=== PATIENT | male | born 1960 | race Caucasian/White ===

== ENCOUNTER 2018-04-19 17:44 | Emergency (ER) | payer OTHER, SELFPAY ==
[2018-04-19 17:52] VITALS: BP 161/95; PULSE 76; RESP 16; TEMP 36.8; O2SAT 97
--- NOTE | 2018-04-19 18:56 | ED.GENADUL ---
Disposition Clinical Impression: Laceration of right hand Disposition: HOME Condition: Stable Instructions: Laceration (ED) Additional Instructions: Watch for any signs of infection and return immediately if these occur. These include purulent drainage, redness surrounding the wound that is significant, or streaking redness up your arm. Return to the emergency department in 7-10 days for suture removal. Referrals: [facility] Emergency Dept. [Outside] (Return in 7-10 days for suture removal or immediately for signs of infection.) Forms: Work Release Medical Decision Making - Medical Decision Making Patient presenting to the emergency department for complaint of right thumb laceration. Patient has a 2 cm laceration to the base of the right thumb. See wound closure note for wound closure procedure. Wound was explored to base in bloodless field and no signs of vascular, tendon, or deep structure injury was noted. Patient tolerated procedure appropriately with no signs of complication. Patient encouraged to return for any signs of infection otherwise to return for suture removal. After discussion of diagnosis and plan of care with patient patient agreed and stated no further needs, questions, or concerns at this time. History of Present Illness - General Chief complaint: Laceration Stated complaint: UNKNOWN Time Seen by Provider: 04/19/18 18:17 Source: patient, RN notes reviewed Mode of arrival: ambulatory Limitations: no limitations - History of Present Illness Initial comments: Patient reports just prior to arrival he was attempting to mary his home up using a metal bar and when he was pushing on this the metal bar broke causing a laceration in between his thumb and index finger but closer to the base of his thumb. Patient states full movement and strength along with sensation distal to the injury but is concerned more for depth of the laceration. Patient states he is unsure of when his last tetanus was. Onset/Timin -: minutes(s) Location: right, upper extremity Severity scale (1-10): 1 Quality: aching Consistency: constant Improves with: none Worsens with: none Associated Symptoms: denies other symptoms Treatments Prior to Arrival: none - Related Data Unknown [No Known Home Meds] 04/19/18 Allergies Allergy/AdvReac Type Severity Reaction Status Date / Time No Known Allergies Allergy Unverified 04/19/18 17:51 Review of Systems Constitutional: no symptoms reported Respiratory: no symptoms reported Cardiovascular: denies: syncope Skin: as per HPI Comment: All other systems reviewed and negative Past Medical History - Past Medical History Medical history: no medical history Surgical history: no surgical history - Social History Smoking status: never smoker Alcohol use: rarely. denies: recent Drug use: none Living Situation: lives with family General Exam - General Limitations: no limitations General appearance: alert, in no apparent distress - Head Head exam: Present: atraumatic - Respiratory Respiratory exam: Absent: respiratory distress - Cardiovascular Cardiovascular Exam: Present: regular rate, normal rhythm - Expanded Upper Extremity Exam Right Forearm Wrist exam: Present: normal inspection Hand Wrist exam: Present: full ROM (Patient has no tendon deficiencies noted to the thumb and full strength.), laceration (2 patient has a L-shaped laceration at the base of the right thumb). Absent: tenderness, swelling, deformity Neuro motor exam: Present: thumb opposition intact, thumb IP flexion intact, thumb adduction intact Neurosensory exam: Present: 2-point discrimination, radial nerve intact, ulnar nerve intact, median nerve intact Vascular: Present: normal capillary refill Course Vital Signs - 24 hr 08//18 17:52 Temperature 36.8 C Pulse 76 Respiratory 16 Rate Blood Pressure 161/95 Pulse Oximetry 97 Procedures - Laceration Repair Consent Obtained: Verbal consent Copious Irrigation performed: Yes Laceration Length (cm): 2 Laceration Depth: Subcutaneous Bleeding Type/Amount: Minimal, Bleeding Controlled Complexity: Simple Anesthetic: Local, Lidocaine 2% Amount of Anesthetic (mls): 4 Material: Proline Suture Size: 4-0 Suture Number: 4
== END 2018-04-19 19:14 | disposition home or self-care (01) ==
PROVIDERS: Emergency Provider Student in an Organized Health Care Education/Training Program
DX: S61.411A Laceration without foreign body of right hand, initial encounter (principal); W45.8XXA Other foreign body or object entering through skin, initial encounter
CPT/HCPCS: 12001; 90471

== ENCOUNTER 2018-08-31 07:46 | Outpatient (REF) | payer OTHER, SELFPAY ==
[2018-08-31 15:18] LABS: Anion Gap 9.2 mmol/L (3-11); BUN 15 mg/dL (7-18); CO2 25.8 mmol/L (21.0-32.0); CREATININE 1.12 mg/dL (0.70-1.30); Calcium 9.1 mg/dL (8.5-10.1); Chloride 105 mmol/L (98-107); Cholesterol 174 mg/dL (50-200); Glucose 103 mg/dL (70-100); HDL Cholesterol 53 mg/dL (40-60); LDL CHOLESTEROL 107 mg/dL (<100); Potassium 3.9 mmol/L (3.5-5.1); Sodium 140 mmol/L (136-145); Triglyceride 69 mg/dL (30-150)
== END 2018-08-31 08:06 ==
LOC: NCHCN 07:46
PROVIDERS: PCP Nurse Practitioner Family; Visit Provider Nurse Practitioner Family
DX: R03.0 Elevated blood-pressure reading, without diagnosis of hypertension (principal)
CPT/HCPCS: 80048; 80061; 83721

== ENCOUNTER 2022-02-18 16:07 | Outpatient (REF) | payer OTHER, SELFPAY ==
[2022-02-18 14:33] LABS: BUN 19 mg/dL (7-18); CREATININE 1.1 mg/dL (0.70-1.30); Calcium 8.9 mg/dL (8.5-10.1); Calculated LDL 92 mg/dL (<100); Chloride 106 mmol/L (98-107); Cholesterol 162 mg/dL (<200); Glucose 117 mg/dL (74-106); HDL Cholesterol 56 mg/dL (40-60); Potassium 4.2 mmol/L (3.5-5.1); Sodium 141 mmol/L (136-145); Triglyceride 74 mg/dL (<150)
== END 2022-02-18 16:08 | disposition home or self-care (01) ==
LOC: NCHCN 16:07
PROVIDERS: PCP Nurse Practitioner Family; Visit Provider Nurse Practitioner Family
DX: Z00.00 Encounter for general adult medical examination without abnormal findings (principal); R03.0 Elevated blood-pressure reading, without diagnosis of hypertension; J45.30 Mild persistent asthma, uncomplicated; E66.8 Other obesity; Z68.31 Body mass index [BMI] 31.0-31.9, adult; Z13.220 Encounter for screening for lipoid disorders
CPT/HCPCS: 80048; 80061

== ENCOUNTER 2022-11-13 01:04 | Emergency (ER) | payer OTHER, SELFPAY ==
--- NOTE | 2022-11-13 01:00 | RT.EKG_ITS ---
APPROVED REPORT Exam: Resting ECG Reason for Exam: syncope Patient Location: E HR:73 bpm ECG Measurements Heart Rate 73 AXIS IN 169 P 91 QRSd 89 QRS -18 QT 401 T 24 QTc 441 Conclusion Sinus rhythm...normal P axis, V-rate 60- 99 Probable left atrial enlargement...P >50mS, <-0.10mV V1 sinus rhythm, left axis, normal intervals, non ischemic
[2022-11-13 01:07] VITALS: BP 177/101; PULSE 76; RESP 20; TEMP 36.1; O2SAT 95
--- NOTE | 2022-11-13 01:15 | DI.RAD_ITS ---
Exam(s) XR SHOULDER LT COMPLETE 2+V EXAM: XR SHOULDER LT COMPLETE 2+V CLINICAL HISTORY: syncope shoudler pain. TECHNIQUE: 2D digital imaging was performed of the left shoulder. Four images were obtained. AP, G rashey, Y-view and axillary views were obtained. COMPARISON: No exams were available for comparison FINDINGS: BONES: No acute fracture is present. No bony destructive lesion is seen. JOINTS: No dislocation present. Degenerative changes are seen at the acromioclavicular joint. The gl enohumeral joint is well maintained. SOFT TISSUE: Normal. IMPRESSION: No acute abnormality. DATA REPOSITORY: RADIATION DOSE DELIVERED:
--- NOTE | 2022-11-13 01:17 | DI.CT_ITS ---
Exam(s) CT HEAD CERVICAL SPINE WO EXAM: CT HEAD CERVICAL SPINE WO CLINICAL HISTORY: syncope, neck pain. TECHNIQUE: Imaging Protocol: Axial computed tomography images with coronal and sagittal reformatted images were created and reviewed COMPARISON: No exams were available for comparison FINDINGS: CT Head: Ventricles and Extra axial spaces: Normal in size and morphology for the patient's age. Hemorrhage: None. Cerebral parenchyma: Normal. Midline shift: None. Brainstem/Cerebellum: Normal. Calvarium: Normal. Visualized Paranasal sinuses/Mastoids: Mucosal thickening is seen in the maxillary sinuses bilaterall y. The remaining visualized paranasal sinuses and mastoid air cells are clear. There is a small flu id level in the right maxillary sinus. Soft Tissues: Unremarkable. CT Cervical Spine: Bones: There is a lucency in the left lamina of C4 suspicious for nondisplaced fracture. There are de generative changes seen in the cervical spine. Soft Tissues: Unremarkable. Lung Apices: Clear. IMPRESSION: 1. No acute intracranial process. 2. Lucency in the left lamina of C4 suspicious for nondisplaced fracture. No soft tissue swelling or hematoma is seen. No central spinal canal stenosis results. 3. Findings were discussed with Dr. Marquez at 9:38 a.m. on 11/13/2022. RADIATION DOSE DELIVERED: 1,715.38mGy.cm Total DLP DATA REPOSITORY: All CT scans at this facility are submitted to the National Radiology Data Registry (NRDR) Dose Index Registry (DIR) with the [employer] (A[employer]). RADIATION OPTIMIZATION: All CT scans at this facility use at least one of these dose optimization te chniques: automated exposure control; mA and/or kV adjustment per patient size (includes targeted exa ms where dose is matched to clinical indication); or iterative reconstruction.
[2022-11-13] MEDS: Lactated Ringers 1,000 ML 1000 ML IV (01:22)
[2022-11-13 01:27] LABS: Abs Immature Grans 0.02 10^3/uL (0.0-0.06); Absolute Basophil Count 0.03 10^3/uL (0.0-0.2); Absolute Eosinophil Count 0.35 10^3/uL (0.0-0.7); Absolute Lymphocyte Count 2.34 10^3/uL (1.2-3.4); Absolute Monocyte Count 0.56 10^3/uL (0.1-0.8); Basophils % 0.4; Eosinophils % 4.7; HCT 49.8 % (40.0-50.0); HGB 16.8 g/dL (13.5-17.5); Immature Grans % 0.3; Lymphocytes % 31.2; MCH 28.5 pg (27.0-33.0); MCHC 33.7 % (32.0-36.0); MCV 85 fL (80-95); MPV 9.7 fL (8.0-11.0); Monocytes % 7.5; Neutrophils % 55.9; Platelet Count 274 10^3/uL (130-400); RBC 5.89 10^6/uL (4.36-5.78); RDW 13.1 % (11.8-14.1); RDW-SD 40.3 fL
--- NOTE | 2022-11-13 01:29 | ED.GENADUL_ITS ---
Discharge Plan Disposition Patient Disposition: Home Discharge Details Chief Complaint: [id number] Clinical Impression: Syncope, Facial laceration Primary Care Provider: Brandy Ochoa ED Provider: Timbo Waldrop Home Meds and New Rx's Prescriptions: No Action hydrochlorothiazide 25 mg tablet 25 mg PO DAILY fluticasone propion-salmeterol [Advair Diskus] 500-50 mcg/dose blister with device 1 inh inhalation BID albuterol sulfate [ProAir HFA] 90 mcg/actuation HFA aerosol inhaler 2 puff inhalation Q6H PRN Discharge Instructions Instructions: Syncope (ED), Facial Laceration (ED) Additional Instructions: Please keep wound clean and dry. Please return to the emergency department for any worsening symptoms. Discuss events of tonight with your surgeon to talk about possibly delaying your colonoscopy to allow you to recover from your injuries. Stand Alone Forms: Work Release Medical Decision Making 61-year-old male prepping for colonoscopy multiple bowel movements today had syncopal episode on the toilet fell forward sustaining 2 cm gaping laceration to right, hemostatic no foreign body. Does have left lateral neck and left shoulder discomfort full range of motion of limbs neurologically intact. Hemodynamically stable. Likely vasovagal episode versus orthostasis lower suspicion for malignant arrhythmia CVA ACS PE or aortic pathology. Unlikely intracranial hemorrhage or spinal cord fracture however given loss of consciousness and mechanism as well as age will obtain imaging of head and neck. Patient believes that he is up-to-date on tetanus. Will need local anesthetic for primary repair with suture material. Disposition pending labs EKG and imaging. Will provide fluid given potential for relative hypovolemia in the setting of loose stool/colonoscopy prep 14: 09 still late laceration involving bridge of nose, wound irrigated and explored, hemostatic. Closed with 4-0 Vicryl simple interrupted x6 5: 09 patient resting comfortably no acute distress great improvement in color and symptomatology. CT head and C-spine negative. X-ray of shoulder showing chronic AC joint changes. Counseled patient to discuss the pros and cons of proceeding with colonoscopy today as he has been through a lot physically over the last several hours might be worth considering delaying study to allow recovery. Home care instructions and return precautions given HPI General Date/Time Provider Initiated Documentation: 11/13/22 01:05 . HPI Narrative: 61-year-old male, currently prepping for colonoscopy, was having multiple bowel movements today was on the toilet this evening had syncopal episode on the toilet fell forward sustaining laceration to brow, patient endorses neck pain and left shoulder pain. Denies blood thinner use. Related Data Home Medications Medication Instructions Recorded Confirmed albuterol sulfate 90 mcg/actuation 2 puff inhalation Q6H PRN 04/16/22 11/13/22 aerosol inhaler (ProAir HFA) fluticasone 500 mcg-salmeterol 50 1 inh inhalation BID 04/16/22 11/13/22 mcg/dose blistr powdr for inhalation (Advair Diskus) hydrochlorothiazide 25 mg tablet 25 mg PO DAILY 10/22/22 11/13/22 Allergies Allergy/AdvReac Type Severity Reaction Status Date / Time No Known Allergies Allergy Unverified 11/12/22 10:39 General Stated Complaint: [id number] RITIKA: 3 Review of Systems Narrative: Review of Systems Constitutional: negative Eyes: negative ENT: negative Cardiovascular: Syncope Respiratory: negative Gastrointestinal: negative : negative Musculoskeletal: Neck pain, left shoulder pain Skin: Brow laceration Neurologic: negative Psych: negative PFSH All Active Problems (Updated 11/13/22 @ 05:12 by Timbo Waldrop MD) Syncope (Chronic) Facial laceration (Acute) Screening for colon cancer (Acute) Medical History (Updated 11/13/22 @ 05:12 by Timbo Waldrop MD) Asthma Elevated blood pressure reading Family history of skin cancer Seborrheic dermatitis Social History (Updated 10/22/22 @ 09:34 by ALEJANDRINA Triana) Smoking/Tobacco Use Status: Former Tobacco Use Quit Date: 08/30/90 Smoking risk assessment performed?: Yes Alcohol Intake: current Alcohol Intake frequency: a few times a month Alcohol type: beer Drug use: Never Substance use type: does not use Do you feel safe at home: Yes Do you feel safe in your relationship?: Yes Exam Narrative Exam Narrative: Physical Examination General: alert, awake, cooperative, resting comfortably, no acute distress HEENT: normocephalic, 2 cm gaping laceration to brow hemostatic no foreign body; PERRL, EOM intact, conjunctiva normal; no nasal discharge; moist mucous membranes, oral and pharyngeal mucosa normal, tolerating secretions Neck: supple, trachea midline; full ROM Chest: normal to inspection Respiratory: normal respiratory effort, speaking in full sentences, clear to auscultation, no wheezing, rales or rhonchi Cardiac: regular rate, regular rhythm, S1S2 intact, no murmurs rubs or gallops GI: abdomen soft, non-tender, non-distended; no palpable mass or hepatosplenomegaly Back: Discomfort along the left lateral neck line into the left shoulder Skin: no lesions, rashes or trauma appreciated Neuro: AAOx3, normal speech, moving all extremities Extremities: No external signs of trauma range of motion intact Psych: Appropriate mood and affect Course Vital Signs Vital signs: Vital Signs Temperature 36.1 C L 11/13/22 01:07 Pulse 76 11/13/22 01:07 Respiratory Rate 20 11/13/22 01:07 Blood Pressure 177/101 H 11/13/22 01:07 Pulse Oximetry 95 11/13/22 01:07 Temperature 36.1 C L 11/13/22 01:07 Temperature Source Tympanic 11/13/22 01:07 Pulse 76 11/13/22 01:07 Respiratory Rate 20 11/13/22 01:07 Respiratory Effort Normal 11/13/22 01:16 Blood Pressure 177/101 H 11/13/22 01:07 Blood Pressure Position Sitting 11/13/22 01:07 Pulse Oximetry 95 11/13/22 01:07 Oxygen Delivery Method Room Air 11/13/22 01:07 Oxygen Flow Rate 0 11/13/22 01:07 Pain Level 8 11/13/22 01:07 Lab/Test Results Lab/Test Results: Laboratory Tests Range/Units 11/13/22 01:21 WBC (4.4-10.8) 10^3/uL 7.50 RBC (4.36-5.78) 10^6/uL 5.89 H Hgb (13.5-17.5) g/dL 16.8 Hct (40.0-50.0) % 49.8 MCV (80-95) fL 85 MCH (27.0-33.0) pg 28.5 MCHC (32.0-36.0) % 33.7 RDW (11.8-14.1) % 13.1 Plt Count (130-400) 10^3/uL 274 MPV (8.0-11.0) fL 9.7 Immature Gran % 0.3 Neutrophils % 55.9 Lymphocytes % 31.2 Monocytes % 7.5 Eosinophils % 4.7 Basophils % 0.4 Nucleated RBC % (0.0-0.3) % 0.0 Absolute Neutrophils (1.2-6.7) 10^3/uL 4.20 Absolute Lymphocytes (1.2-3.4) 10^3/uL 2.34 Absolute Monocytes (0.1-0.8) 10^3/uL 0.56 Absolute Eosinophils (0.0-0.7) 10^3/uL 0.35 Absolute Basophils (0.0-0.2) 10^3/uL 0.03 Procedures Laceration Laceration 1: Site: scalp and face Size (cm): 2 Description: linear Depth: involves muscle layer Local Anesthetic: Lidocaine 1% Amount of anesthesia used (mL): 2 Pre-repair: wound explored and irrigated extensively Skin layer closed with: vicryl Size (cm): 5-0 Number of sutures: 6 Technique: simple, interrupted PAWSS Have you Been Recently Intoxicated or Drunk Within the Last 30 days?: No Have you Ever Experienced Previous Episodes of Alcohol Withdrawal?: No Have you ever Experienced Withdrawal Seizures?: No Have you ever Experienced Delirium Tremens(DT)s?: No Have you ever undergone Alcohol Rehabilitation Treatment (i.e, inpt ot outpatient treatment programs)?: No Have you ever Experienced Blackouts?: No Have you ever Combined Alcohol with other Downers within the last 90 days?: No Have you ever Combined Alcohol with any other Substance of Abuse during the last 90 days?: No Positive Blood Alcohol level on Presentation? [PCS.BAL]: No Evidence of Increased Autonomic Activity (i.e. HR>120, tremor, sweating, agitation, nausea)?: No Result: 0
[2022-11-13 01:41] LABS: PTT Activated 21.6 sec (21.5-31.9); Prothrombin Time 10.5 sec (9.3-11.0)
[2022-11-13 01:43] LABS: ALT 61 U/L (16-63); AST 28 U/L (15-37); Albumin 4.5 g/dL (3.4-5.0); Alkaline Phosphatase 86 U/L (46-116); BUN 11 mg/dL (7-18); Bilirubin, Total 0.9 mg/dL (0.2-1.0); CREATININE 1.3 mg/dL (0.70-1.30); Calcium 9.4 mg/dL (8.5-10.1); Chloride 104 mmol/L (98-107); Glucose 150 mg/dL (74-106); Potassium 3.8 mmol/L (3.5-5.1); Sodium 138 mmol/L (136-145); Total Protein 8.6 g/dL (6.4-8.2); Troponin I < 50 ng/L (<or=60)
[2022-11-13] MEDS: ACETAMINOPHEN 1,000 MG/100 ML BTL 400 MG (02:13)
--- NOTE | 2022-11-13 03:15 | DI.VRAD_ITS ---
PROCEDURE INFORMATION: Exam: CT Head Without Contrast Exam date and time: 11/13/2022 2:23 AM Age: 61 years old Clinical indication: Injury or trauma; Fall; Other: Syncope, neck pain TECHNIQUE: Imaging protocol: Computed tomography of the head without contrast. Radiation optimization: All CT scans at this facility use at least one of these dose optimization techniques: automated exposure control; mA and/or kV adjustment per patient size (includes targeted exams where dose is matched to clinical indication); or iterative reconstruction. COMPARISON: No relevant prior studies available. FINDINGS: Brain: Normal. No hemorrhage. Unremarkable white matter. No mass effect. Cerebral ventricles: No ventriculomegaly. Paranasal sinuses: Visualized sinuses are unremarkable. No fluid levels. Mastoid air cells: Visualized mastoid air cells are well aerated. Bones/joints: Unremarkable. No acute fracture. Soft tissues: Unremarkable. IMPRESSION: No acute intracranial abnormality. PROCEDURE INFORMATION: Exam: CT Cervical Spine Without Contrast Exam date and time: 11/13/2022 2:23 AM Age: 61 years old Clinical indication: Injury or trauma; Fall; Other: Syncope, neck pain TECHNIQUE: Imaging protocol: Computed tomography of the cervical spine without contrast. Radiation optimization: All CT scans at this facility use at least one of these dose optimization techniques: automated exposure control; mA and/or kV adjustment per patient size (includes targeted exams where dose is matched to clinical indication); or iterative reconstruction. COMPARISON: No relevant prior studies available. FINDINGS: Bones/joints: No acute fracture. Normal alignment. Multilevel degenerative disk disease and facet arthropathy with neuroforaminal and canal stenosis.. Lungs: Lung apices are normal. Soft tissues: Unremarkable. IMPRESSION: No acute findings. Dictated and Authenticated by: Mike Avendaño MD. Ordering:CORTES Izquierdo MD
[2022-11-13 03:27] VITALS: BP 149/71; PULSE 63; O2SAT 96
[2022-11-13] MEDS: Lidocaine 5% Patch 1 PATCH TP (04:18)
[2022-11-13] MEDS: Cyclobenzaprine 10 MG TAB PO (04:20)
--- NOTE | 2022-11-13 04:50 | DI.VRAD_ITS ---
PROCEDURE INFORMATION: Exam: XR Left Shoulder Exam date and time: 11/13/2022 2:31 AM Age: 61 years old Clinical indication: Injury or trauma; Fall; Other: Syncope shoulder pain TECHNIQUE: Imaging protocol: Radiologic exam of the left shoulder. Views: 2 or more views. COMPARISON: CT HEAD CERVICAL SPINE WO 11/13/2022 2:23 AM FINDINGS: Bones/joints: No acute fracture or subluxation. Degenerative changes of acromioclavicular joint and spine.. Soft tissues: Normal. IMPRESSION: No acute findings. Dictated and Authenticated by: Brandon Taylor MD. Ordering:CORTES Izquierdo MD
[2022-11-13 05:27] VITALS: BP 143/76; PULSE 63; RESP 18; O2SAT 95
--- NOTE | 2022-11-13 10:11 | W.EDPROG ---
Date of service: 11/13/22 Time of Service: 10:11 Medical Decision Making I received a call from Dr. Anderson, radiology, regarding an over read on Mr. Rosamaria freeman C-spine CAT scan from last night. Dr. Anderson is concerned that the patient may have a left lamina of C4 nondisplaced fracture. I discussed further imaging with Dr. Anderson. We were able to secure an MRI of his C-spine around 3 PM. I discussed this with Mr. Reese at 10 10 in the morning, I have asked him to secure transport to come back to the emergency department where he will be placed in a c-collar pending the MRI. The patient does not have any weakness or symptomatology that is concerning at this time. He is complaining of cervical myalgias. Discharge Plan Disposition Patient Disposition: Home Discharge Details Clinical Impression: Syncope, Facial laceration Primary Care Provider: Brandy Ochoa ED Provider: Timbo Waldrop Home Meds and New Rx's Prescriptions: New ibuprofen 400 mg tablet 400 mg PO Q8H PRNQty: 14 0RF lidocaine [Lidoderm] 5 % adhesive patch,medicated 1 patch topical DAILY Qty: 15 0RF Rx Instructions: leave on most painful area for up to 12 hrs No Action hydrochlorothiazide 25 mg tablet 25 mg PO DAILY fluticasone propion-salmeterol [Advair Diskus] 500-50 mcg/dose blister with device 1 inh inhalation BID albuterol sulfate [ProAir HFA] 90 mcg/actuation HFA aerosol inhaler 2 puff inhalation Q6H PRN Discharge Instructions Instructions: Syncope (ED), Facial Laceration (ED) Additional Instructions: Please keep wound clean and dry. Please return to the emergency department for any worsening symptoms. Discuss events of tonight with your surgeon to talk about possibly delaying your colonoscopy to allow you to recover from your injuries. Stand Alone Forms: Work Release Discharge Data Discharge Date/Time-TO BE ENTERED AT DEPARTURE: 11/13/22 05:28
== END 2022-11-13 05:28 | disposition home or self-care (01) ==
PROVIDERS: Emergency Provider Emergency Medicine; PCP Nurse Practitioner Family
DX: S01.81XA Laceration without foreign body of other part of head, initial encounter (principal); R55 Syncope and collapse; G89.11 Acute pain due to trauma; M54.2 Cervicalgia; M25.512 Pain in left shoulder; J45.909 Unspecified asthma, uncomplicated; Z79.51 Long term (current) use of inhaled steroids; W19.XXXA Unspecified fall, initial encounter
CPT/HCPCS: 12011; 80053; 93005; 96360; 99284; 70450; 72125; 73030; 84484; 85025; 85610; 85730; 93010; 99285; J0131

== ENCOUNTER 2022-11-13 14:49 | Emergency (ER) | payer OTHER, SELFPAY ==
[2022-11-13 14:57] VITALS: BP 135/82; PULSE 92; RESP 16; TEMP 36.8; O2SAT 94
--- NOTE | 2022-11-13 15:26 | ED.GENADUL_ITS ---
Discharge Plan Discharge Details Chief Complaint: Nk/Back Pain Primary Care Provider: Brandy Ochoa ED Provider: Dave Marquez Home Meds and New Rx's Prescriptions: No Action hydrochlorothiazide 25 mg tablet 25 mg PO DAILY fluticasone propion-salmeterol [Advair Diskus] 500-50 mcg/dose blister with device 1 inh inhalation BID albuterol sulfate [ProAir HFA] 90 mcg/actuation HFA aerosol inhaler 2 puff inhalation Q6H PRN ibuprofen 400 mg tablet 400 mg PO Q8H PRNQty: 14 0RF lidocaine [Lidoderm] 5 % adhesive patch,medicated 1 patch topical DAILY Qty: 15 0RF Rx Instructions: leave on most painful area for up to 12 hrs Medical Decision Making I discussed his case at 3:20 PM with the transfer center at [facility]. I have requested a ED to ED transfer so the patient can get an MRI. Should the MRI be positive he could get a spine evaluation. If the MRI is negative he can be discharged. Patient signed out to Dr. Alfredo Bui. HPI General Date/Time Provider Initiated Documentation: 11/13/22 15:16 . HPI Narrative: 61-year-old gentleman presented to the emergency room at the request for further evaluation. He fell/syncope last night and as part of his work-up had a CT C- spine. This was initially read as negative but on reevaluation but radiology this morning there was a concern that he had a C4 nondisplaced lamina fracture on the left. I contacted the gentleman who requested him to come back to the emergency department for further evaluation and an MRI. We had arranged for him to have an MRI done around 3 PM but unfortunately our MRI broke. He arrives to the emergency department complaining of less neck pain that he did yesterday. No paresthesias no weakness. Strength of the upper treatment is normal. Related Data Home Medications Medication Instructions Recorded Confirmed albuterol sulfate 90 mcg/actuation 2 puff inhalation Q6H PRN 04/16/22 11/13/22 aerosol inhaler (ProAir HFA) fluticasone 500 mcg-salmeterol 50 1 inh inhalation BID 04/16/22 11/13/22 mcg/dose blistr powdr for inhalation (Advair Diskus) hydrochlorothiazide 25 mg tablet 25 mg PO DAILY 10/22/22 11/13/22 ibuprofen 400 mg tablet 400 mg PO Q8H PRN #14 tabs 11/13/22 11/13/22 lidocaine 5 % topical patch 1 patch topical DAILY #15 ea 11/13/22 11/13/22 (Lidoderm) Previous Rx's Medication Instructions Recorded ibuprofen 400 mg tablet 400 mg PO Q8H PRN #14 tabs 11/13/22 lidocaine 5 % topical patch 1 patch topical DAILY #15 ea 11/13/22 (Lidoderm) Allergies Allergy/AdvReac Type Severity Reaction Status Date / Time No Known Allergies Allergy Unverified 11/13/22 15:19 General Stated Complaint: Nk/Back Pain RITIKA: 2 Review of Systems Narrative: 10 point review of systems is negative. PFSH All Active Problems (Updated 11/13/22 @ 05:12 by Timbo Waldrop MD) Syncope (Chronic) Facial laceration (Acute) Screening for colon cancer (Acute) Medical History (Updated 11/13/22 @ 05:12 by Timbo Waldrop MD) Asthma Elevated blood pressure reading Family history of skin cancer Seborrheic dermatitis Social History (Updated 10/22/22 @ 09:34 by ALEJANDRINA Triana) Smoking/Tobacco Use Status: Former Tobacco Use Quit Date: 08/30/90 Smoking risk assessment performed?: Yes Alcohol Intake: current Alcohol Intake frequency: a few times a month Alcohol type: beer Drug use: Never Substance use type: does not use Do you feel safe at home: Yes Do you feel safe in your relationship?: Yes Exam Narrative Exam Narrative: He is awake alert [place] x3 calm no acute distress PERRLA EOMI MMM Normocephalic. He does have some abrasions on the bridge of the nose. He was placed in C-spine collar upon arrival by nursing per protocol. Work of breathing within normal limits. Normal cap refill. Neuro cranial part 2-12 grossly intact Strength of upper extremities 5/5. Strength of lower extremities 5/5. DTRs equal bilaterally. Normal sensation normal strength Skin no rashes Psych adequate mood and affect. 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
--- NOTE | 2022-11-13 15:58 | DI.MRI_ITS ---
Exam(s) MR CERVICAL SPINE WO EXAM: MR CERVICAL SPINE WO CLINICAL HISTORY: ? fx on ct, pain, fall TECHNIQUE: Multiplanar multisequence MRI of the cervical spine was performed without intravenous con trast. COMPARISON: CT CT HEAD CERVICAL SPINE WO from 11/13/2022 FINDINGS: BONES: Vertebral body heights are maintained. Intervertebral disc spaces are normal. Alignment is nor mal. Bone marrow signal intensity is within normal limits. There is no edema seen in the C4 vertebral body or posterior elements to suggest an acute fracture. CERVICAL CORD: Craniovertebral junction is unremarkable. The cervical cord is normal size and signal intensity. SOFT TISSUES: Unremarkable. Disc spaces: C2-3: No disc herniation or bulge is identified. No significant central spinal canal or neural forami nal stenosis. C3-4: No disc herniation or bulge is identified. No significant central spinal canal or neural forami nal stenosis C4-5: No disc herniation or bulge is identified. No significant central spinal canal or neural forami nal stenosis C5-6: There is prominence of the osteophyte disc complex. There is mild narrowing of the central spi nal canal. No significant neural foraminal stenosis is seen. C6-7: There is mild prominence of the osteophyte disc complex. No significant central spinal canal o r right neural foraminal stenosis is seen. There are degenerative changes of the left uncovertebral joint causing mild left neural foraminal stenosis. C7-T1: No disc herniation or bulge is identified. No significant central spinal canal or neural sean inal stenosis IMPRESSION: 1. No findings to suggest an acute fracture. The lucency seen on the prior examination may represent an old nonunited fracture or congenital abnormality. 2. Multilevel degenerative changes in the cervical spine as described above. 3. Findings were discussed with Dr. Bui on 11/13/2022. DATA REPOSITORY:
--- NOTE | 2022-11-13 16:53 | W.EDPROG ---
Date of service: 11/13/22 Time of Service: 16:53 Medical Decision Making Care signed out by Dr. Marquez, please see his documentation regarding initial ED presentation and course. We were able to obtain MRI here as machine now operational. MRI was interpreted by radiology: No acute fracture. Old C4 laminar questionable fracture. Plan for discharge with outpatient follow-up. Discharge Plan Disposition Patient Disposition: Home Condition: Stable Discharge Details Clinical Impression: Abnormal finding on imaging Primary Care Provider: Brandy Ochoa ED Provider: Alfredo Bui Home Meds and New Rx's Prescriptions: Continued hydrochlorothiazide 25 mg tablet 25 mg PO DAILY fluticasone propion-salmeterol [Advair Diskus] 500-50 mcg/dose blister with device 1 inh inhalation BID albuterol sulfate [ProAir HFA] 90 mcg/actuation HFA aerosol inhaler 2 puff inhalation Q6H PRN ibuprofen 400 mg tablet 400 mg PO Q8H PRNQty: 14 0RF lidocaine [Lidoderm] 5 % adhesive patch,medicated 1 patch topical DAILY Qty: 15 0RF Rx Instructions: leave on most painful area for up to 12 hrs Discharge Instructions Instructions: Syncope (ED) Additional Instructions: MRI imaging of your cervical spine revealed no acute fracture. There is a old laminar defect noted C4 that may be a chronic fracture. Please contact your primary care physician to arrange follow-up. Return to the ER immediately for any worsening or new concerning symptoms. Referrals: Brandy Ochoa [Primary Care Provider] - Discharge Data Discharge Date/Time-TO BE ENTERED AT DEPARTURE: 11/13/22 17:21
[2022-11-13 17:18] VITALS: BP 112/83; PULSE 86; RESP 16; TEMP 36.5; O2SAT 94
== END 2022-11-13 17:21 | disposition home or self-care (01) ==
PROVIDERS: Emergency Provider Student in an Organized Health Care Education/Training Program; PCP Nurse Practitioner Family
DX: R93.7 Abnormal findings on diagnostic imaging of other parts of musculoskeletal system (principal); S00.31XA Abrasion of nose, initial encounter; J45.909 Unspecified asthma, uncomplicated; Z79.51 Long term (current) use of inhaled steroids; W19.XXXA Unspecified fall, initial encounter
CPT/HCPCS: 36415; 94640; 96374; 99284; 72141

== ENCOUNTER 2023-11-17 09:38 | Outpatient (REF) | payer OTHER, SELFPAY ==
[2023-11-17 16:18] LABS: Hemoglobin A1C 6.1 % (<5.7)
== END 2023-11-17 09:39 | disposition home or self-care (01) ==
LOC: NCHCN 09:38
PROVIDERS: Visit Provider Nurse Practitioner Family
DX: R73.09 Other abnormal glucose (principal)
CPT/HCPCS: 83036

== ENCOUNTER 2024-07-21 06:55 | Day surgery (SDC) | payer OTHER, SELFPAY ==
--- NOTE | 2024-07-20 14:57 | W.PM.DSUDISC ---
Date of service: 07/21/24 Time of Service: 09:16 Discharge Plan Disposition Patient Disposition: Home Condition: Good Discharge Details Reason For Visit: screening colonoscopy Attending Provider: Lowell Anderson Primary Care Provider: LIT ROCHA Home Meds and New Rx's Prescriptions: Continued fluticasone propion-salmeterol [Advair Diskus] 500-50 mcg/dose blister with device 1 inh inhalation BID albuterol sulfate [ProAir HFA] 90 mcg/actuation HFA aerosol inhaler 2 puff inhalation Q6H PRN Discontinued bisacodyl [Dulcolax (bisacodyl)] 5 mg tablet,delayed release (DR/EC) 5 mg PO ONCE Qty: 4 0RF Rx Instructions: Take per colonoscopy instructions provided by ordering providers office polyethylene glycol 3350 17 gram/dose powder 17 g PO ONCE Qty: 238 0RF Rx Instructions: Take per colonoscopy instructions provided by ordering providers office Discharge Instructions Instructions: Colon polyps Additional Instructions: Miguel, It was very nice meeting you today, and I hope you are comfortable throughout the procedure. I did find and remove a total of 7 polyps today. Most of these were quite small, and nothing about the more recently to the naked eye. Regardless, I will send these off for the pathologist to test, polyps, different varieties, and that information can be used to help guide the timing of your next colonoscopy. Those results usually take a week or 2 to get back, but once the office has them, we will be in touch with recommendations. If you need anything or have any questions in the meantime, please do not hesitate to call. 1. If tolerated, consume a soft, low fiber diet for 1-2 days. 2[address] Do not drive, drink alcohol, operate machinery, make critical decisions, or do activities that require coordination or balance for 24 hours. 3. Because air was put into your colon during the procedure, expelling air from your rectum (passing gas or farting) is normal. 4. You may not have a bowel movement for 1-3 days because of the colonoscopy prep. This is normal. 5. Go directly to the emergency room if you notice any of the following: Develop chills (warm to touch), or if you have a thermometer and your temperature is above 101 Difficulty breathing or difficultly swallowing Persistent vomiting Severe abdominal pain, other than gas cramps Severe chest pain Black, tarry stools Any bleeding ? exceeding one tablespoon 6. Call your physician if the site where your intravenous was started becomes red, swollen, painful, and warm to touch. 7. Your physician has reviewed your pre-procedure medications. Please continue to take those medications as previously ordered. You will be given specific information/education regarding any changes to your medications before leaving. Activity:: Activity as Tolerated Diet:: As Tolerated Discharge Orders Discharge Orders: Discharge Order (Routine); Ordered 07/20/24 Ordered By: Lowell Anderson DS: Diagnosis Discharge Diagnosis (1) Screening for colon cancer: Status: Acute Asessment and Plan: Follow-up on polypectomy results
--- NOTE | 2024-07-20 14:58 | W.COLOREPORT ---
Date of service: 07/21/24 Time of Service: 09:18 Colonoscopy Report Date of procedure: 07/21/24 Pre-op diagnosis general: screening colonsocopy Post-op diagnosis procedure note: other (Colon polyps) Procedure: colonoscopy with polypectomy Surgeon: Lowell Anderson Anesthesia Type: General:No Airway Estimated blood loss (mL): 10 Pathology: other (0.25 cm cecal polyp, 0.25 cm ascending colon polyp, 0.25 cm polyp at 80 cm, 0.25 cm polyp at 55 cm, 0.25 cm polyp at 40 cm, 0.25 cm polyps at 20 cm x 2) Complications: None Disposition: same day Indications: Miguel is a 63 year old man with a family history of colon cancer who needs a screening colonoscopy Prep: Miralax/Dulcolax Procedure Start Time: 08:47 Procedure End Time: 09:06 Retraction Time: 12 Findings: 0.25 cm cecal polyp, 0.25 cm ascending colon polyp, 0.25 cm polyp at 80 cm, 0.25 cm polyp at 55 cm, 0.25 cm polyp at 40 cm, 0.5 cm flat polyp at 20 cm, 0.25 cm flat polyp at 20 cm Procedure Description: After the induction of anesthesia, and with the patient in left lateral decubitus position, I began by performing an external anorectal exam.? Perineum and skin were normal, as was the anal verge.? There was no evidence of external hemorrhoids.? Next, I performed a digital rectal exam.? I did not appreciate any abnormal findings.? Next, I advanced a colonoscope into the rectal vault.? I performed retroflexion.? This appeared normal.? Using insufflation, I then advanced the colonoscope beyond the rectal folds and into the sigmoid colon before advancing towards the cecum.? I found a 0.25 cm flat polyp at 40 cm while advancing towards the right side. This was removed with cold forceps polypectomy with minimal bleeding.? The scope was noted to be in the cecum by identification of the ileocecal valve and appendiceal orifice.? Within the cecum was a 0.25 cm flat polyp. This was removed with cold forceps with minimal bleeding. I then began withdrawing the colonoscope using repeated irrigation as necessary for full evaluation of the colonic mucosa. I found another 0.25 cm polyp in the ascending colon. This was a little more pedunculated. This was also removed with cold forcep similar to the first 2 polyps. There was minimal bleeding at the site. I found 0.25 cm flat polyps at 80 cm and 55 cm as well. These were both removed without issue. Around 20 cm from the anal verge were 2 more polyps. 1 of these was about 0.5 cm, the other was 0.25 cm. These were both removed with cold forceps. Once the scope was withdrawn to the level of the rectum, great care was taken to examine portions of the rectal folds.? Finally, the scope was withdrawn and the patient was brought to the same-day surgery recovery unit as the anesthetic wore off. ?The findings and instructions were shared with the patient prior to discharge. [place] Bowel Prep Glad[place] Bowel Prep Right Colon: 3 Left Colon: 3 Transverse Colon: 3 Total Score: 9
--- NOTE | 2024-07-21 07:02 | ANES.PREOP_ITS ---
General Info Date of Service Date Performed: 07/21/24 Height: 5 ft 5 in Weight: 95.254 kg Body Mass Index (BMI): 34.9 Surgical Procedure: Operation Date: 07/21/24 08:20 Proposed Procedure Side Surgeon cherri Anderson MD Meds Allergies and Home Medications Allergies Allergy/AdvReac Type Severity Reaction Status Date / Time No Known Allergies Allergy Verified 07/21/24 07:11 Home Medication ?Medication ?Instructions ?Recorded albuterol sulfate 90 mcg/actuation 2 puff inhalation Q6H PRN 04/16/22 aerosol inhaler (ProAir HFA) fluticasone 500 mcg-salmeterol 50 1 inh inhalation BID 04/16/22 mcg/dose blistr powdr for inhalation (Advair Diskus) Current Visit Medications: Current Medications Generic Name Dose Route Start Last Admin Trade Name Freq PRN Reason Stop Dose Admin IV Miscellaneous Supplies 1 each 07/21/24 06:00 Iv Access IV 07/21/24 23:59 DIRECTED AYESHA Ondansetron HCl 4 mg 07/20/24 15:00 Ondansetron 4 Mg/2 Ml Vial IVP 08/19/24 14:59 Q4H PRN PRN Nausea / Vomiting Sodium Chloride 0 ml 07/21/24 06:00 Normal Saline Flush 10 Ml Syr IV 07/21/24 23:59 PRN PRN Sodium Chloride 0 ml 07/21/24 06:00 Normal Saline 10 Ml Vial IJ 07/21/24 23:59 DIRECTED PRN Sterile Water 0 ml 07/21/24 06:00 Water,Injection,Sterile 10 Ml Vial IJ 07/21/24 23:59 DIRECTED PRN PFSH Active Problems Active Problems: Problem Status Onset Code Screening for colon cancer Acute Z12.11 Medical History Medical History Asthma Seborrheic dermatitis Elevated blood pressure reading Family history of skin cancer Tobacco Smoking/Tobacco Use Status: Former Tobacco Use Alcohol Alcohol Intake: current Alcohol intake frequency: a few times a month Alcohol type: beer Substance Use Substance use: Never Substance use type: does not use Vital Signs and Lab Results Vital Signs Most Recent Vital Signs in EMR: Temp Pulse Resp BP Pulse Ox 36.3 C L 82 18 174/105 H 94 07/21/24 07:14 07/21/24 07:14 07/21/24 07:14 07/21/24 07:14 07/21/24 07:14 Lab Results Blood Type / Crossmatch: 2 No Data to Display Complete Blood Count: 2 No Data to Display Complete Metabolic Panel: 2 No Data to Display Liver Function Panel: 2 No Data to Display Coagulation Panel: 2 No Data to Display Cardiac Panel: 2 No Data to Display Arterial Blood Gas: 2 No Data to Display Venous Blood Gas: 2 No Data to Display Pancreas Panel: 2 No Data to Display Thyroid Panel: 2 No Data to Display Infectious Disease: 2 No Data to Display Blood Cultures: 2 No Data to Display Toxicology Panel: 2 No Data to Display Imaging and Studies Imaging and Studies Study information below may be from another EMR and interpreted by another provider. Please see original notes in EMR for more complete details. EKG Summary: 11/13: sinus. Pulmonary Function Summary: 12/17: moderately severe obstructive dz with sig bronchodilator response. Anesthesia Assessment and Plan Anesthesia History Personal History: No History of General Anesthesia Family History: No Family History of Anesthesia Complications Exercise Tolerance Exercise Tolerance: Metabolic Equivalents>4 Pertinent Negatives Pertinent Negatives: No Symptoms of GERD, No Major Cardiovascular Symptoms or Complaints (blood pressure elevated this morning), No Major Pulmonary Symptoms or Complaints and No History of CVA/TIA Cardiac & Pulmonary Exam Cardiac Exam: Normal S1/S2 Heart Sounds Pulmonary Exam: Clear Bilateral Breath Sounds Implantable Cardiac Device Does patient have a Pacemaker or an ICD?: No Airway Exam Known Difficult Airway: No Mallampati Class: 3 Mouth Opening: Normal (> 3cm) Thyromental Distance: Greater than 3 cm Neck Range of Motion: Full ROM Neck Circumference: Normal Teeth Condition: Generalized Poor Dentition and Advised tooth loss possible given current condition (indicate tooth) Tooth Numberin 1. Very loose tooth 2. missing tooth ASA Classification ASA Score: ASA 2 Emergency Case?: No NPO Status NPO Status: NPO Clears >2 hours, Solids >8 hours Anesthesia Plan Resuscitation Status: Full Code Anesthesia Technique: General Anesthesia Airway Planned: Natural Airway Monitors Used: Standard Monitors Preoperative Comments:: 61 yo male for colo. One year ago: presented to the ED last night with syncope while having a BM sustaining a facial lac. Sig PMHx: asthma (albuterol, fluticasone), HTN (HCTZ), former smoker, occ EtOH.
[2024-07-21 07:14] VITALS: BP 174/105; PULSE 82; RESP 18; TEMP 36.3; O2SAT 94
[2024-07-21] MEDS: Normal Saline Flush 10 ML SYR IV (07:39)
[2024-07-21 08:33] VITALS: BMI 34.9
--- NOTE | 2024-07-21 08:49 | BOWEL_PTH ---
PATIENT: Miugel Reese LOC: [facility] U#:[id number] AGE/SX: 63/M ROOM: RE07/21/[address]: Lowell Anderson MD : [id number] BED: DIS: 07/21/2024 SPEC #: [id number] RECD: 07/21/24 12:50 STATUS: MIA REQ #: [id number] CHERYL: 07/21/24 08:[address]: Lowell Anderson DEPT: Surgical Specimen RECD BY: Jeaneth Boone ENTERED: 07/21/24 12:51 SP TYPE: Bowel OTHR DR: LIT ROCHA, DIRECTIONAL BORE OPERATOR Tissues: 1 - BIOPSY BOWEL 2 - BIOPSY BOWEL 3 - BIOPSY BOWEL 4 - BIOPSY BOWEL 5 - BIOPSY BOWEL 6 - BIOPSY BOWEL Procedures: GROSS AND MICRO LEVEL 4 Comments: [id number]
[2024-07-21 09:15] VITALS: BP 151/80; PULSE 96; RESP 16; TEMP 36.2; O2SAT 92
--- NOTE | 2024-07-21 09:38 | W.ANESPOSTOP ---
Postoperative Evaluation Date, Time and Location Date Performed: 07/21/24 Time Performed: 09:38 Patient Location: Day Surgery Unit Vital Signs Most Recent Imported Vital Signs: Most Recent Vital Signs Temp Pulse Resp BP Pulse Ox 36.2 C L 96 H 16 151/80 H 92 07/21/24 09:15 07/21/24 09:15 07/21/24 09:15 07/21/24 09:15 07/21/24 09:15 Pain Score Most Recent Pain Score: Most Recent Pain Score Pain Level 0 07/21/24 09:15 Assessment Mental Status: Awake (Alert & Oriented to Patient Baseline) Airway and Respiratory Function: Patent airway with normal (patient baseline) respiratory exam (Patient recently on room air. Working on coughing and deep breathing. ) Cardiovascular Function: Hemodynamically Stable Hydration Status: Adequately Hydrated Nausea & Vomiting: No Nausea or Vomiting Pain: Pt. Denies Any Pain Peripheral Nerve Block: Patient did not receive a nerve block
[2024-07-21 09:45] VITALS: BP 139/85; PULSE 68; RESP 18; TEMP 36.5; O2SAT 97
== END 2024-07-21 10:08 | disposition home or self-care (01) ==
LOC: SUR 06:55
PROVIDERS: PCP Nurse Practitioner Family; Visit Provider Surgery
PROC: 0DJD8ZZ Inspection of Lower Intestinal Tract, Via Natural or Artificial Opening Endoscopic (ICD-10-PCS; CPT 45378; principal; 2024-07-21 08:15)
DX: Z12.11 Encounter for screening for malignant neoplasm of colon (principal); Z80.0 Family history of malignant neoplasm of digestive organs; D12.0 Benign neoplasm of cecum; D12.2 Benign neoplasm of ascending colon; D12.4 Benign neoplasm of descending colon; D12.5 Benign neoplasm of sigmoid colon
CPT/HCPCS: 45380; 88305; J2704

== ENCOUNTER 2024-09-26 15:13 | Outpatient (REF) | payer OTHER, SELFPAY ==
[2024-09-26 19:15] LABS: Hemoglobin A1C 6.3 % (<5.7)
[2024-09-26 19:20] LABS: Anion Gap 8.6 mmol/L (3-11); BUN 21 mg/dL (7-18); CO2 27.4 mmol/L (21.0-32.0); CREATININE 1.6 mg/dL (0.70-1.30); Calcium 9.4 mg/dL (8.5-10.1); Calculated LDL 90 mg/dL (<100); Chloride 107 mmol/L (98-107); Cholesterol 189 mg/dL (<200); Estimated GFR 48.11 (mL/min/1.73m2); Glucose 120 mg/dL (74-106); HDL Cholesterol 66 mg/dL (40-60); Potassium 4.2 mmol/L (3.5-5.1); Sodium 143 mmol/L (136-145); Triglyceride 165 mg/dL (<150)
== END 2024-09-26 15:14 | disposition home or self-care (01) ==
LOC: NCHCN 15:13
PROVIDERS: PCP Nurse Practitioner Family; Visit Provider Nurse Practitioner Family
DX: Z00.00 Encounter for general adult medical examination without abnormal findings (principal)
CPT/HCPCS: 80048; 80061; 83036

== ENCOUNTER 2025-01-02 12:51 | Outpatient (REF) | payer OTHER, SELFPAY ==
[2025-01-02 15:49] LABS: Bilirubin Negative (Negative); Blood Negative (Negative); Clarity Clear (Clear); Glucose Negative (Negative); Ketones Negative (Negative); Leukocyte Esterase Negative (Negative); Nitrite Negative (Negative); Urobilinogen 0.2 mg/dL (Up to 0.2); pH 6.5 (5-8)
[2025-01-02 16:53] LABS: COMMENT (LAB VIEW ONLY) 192.74 mg/dL; Microalb ug/mg Crea 4.8 ug/mg Cr
[2025-01-02 17:38] LABS: Anion Gap 8.4 mmol/L (3-11); BUN 17 mg/dL (7-18); CO2 25.6 mmol/L (21.0-32.0); CREATININE 1.1 mg/dL (0.70-1.30); Calcium 9.4 mg/dL (8.5-10.1); Chloride 106 mmol/L (98-107); Estimated GFR 74.96 (mL/min/1.73m2); Glucose 118 mg/dL (74-106); Potassium 4.4 mmol/L (3.5-5.1); Sodium 140 mmol/L (136-145)
[2025-01-04 11:19] LABS: Chlamydia Result Negative (Negative); GC Result Negative (Negative)
== END 2025-01-02 12:52 | disposition home or self-care (01) ==
LOC: NCHCN 12:51
PROVIDERS: PCP Nurse Practitioner Family; Visit Provider Nurse Practitioner Family
DX: R36.1 Hematospermia (principal); I10 Essential (primary) hypertension; N28.9 Disorder of kidney and ureter, unspecified
CPT/HCPCS: 80048; 87491; 87591; 81003; 82043; 82570